=== PATIENT | female | born 1965 | race Caucasian/White ===

== ENCOUNTER 2017-01-01 23:34 | Emergency (ER) | payer OTHER ==
[~2017-01-01] VITALS: Ht 170.2 cm; Wt 59.0 kg
[~2017-01-01 23:34] MED LIST: ALPRAZOLAM; LEXAPRO; PROVERA10 MG PO
[2017-01-01 23:49] VITALS: BP 100/62
[2017-01-01] MEDS ORDERED: NORCO 10-325 T1 EACH PO (23:54)
== END 2017-01-02 00:54 | disposition home or self-care (01) ==
LOC: ER 23:34
DX: R21 Rash and other nonspecific skin eruption (principal); F17.210 Nicotine dependence, cigarettes, uncomplicated; Z88.5 Allergy status to narcotic agent; Z88.0 Allergy status to penicillin